=== PATIENT | male | born 1970 | race African-American/Black ===

== ENCOUNTER 2017-07-16 17:09 | Emergency (ER) | payer OTHER ==
[~2017-07-16] VITALS: Ht 167.6 cm; Wt 88.9 kg
[2017-07-16] MEDS ORDERED: FAMOTIDINE 20 MG/2 ML IVP ONE (18:00)
[2017-07-16] MEDS ORDERED: SODIUM CHLORIDE 0.9% 1,000ML IVBOLUS ONE (18:00)
[2017-07-16] MEDS ORDERED: ONDANSETRON 2MG/ML, 2ML IVPush ONE (18:00)
[2017-07-16] MEDS ORDERED: SODIUM CHLORIDE FLUSH 10ML SYR IVF ONE (18:00)
[2017-07-16 18:35] LABS: ASPARTATE AMINO TRANSFERASE 12 U/L (15-37); BLOOD UREA NITROGEN 13 mg/dL (7-18)
[2017-07-16 18:44] LABS: HEMATOCRIT 47.8 % (39.2-51.8); HEMOGLOBIN 15.9 g/dL (13.7-18.0); WHITE BLOOD COUNT 7.8 x10^3/uL (3.4-10)
[2017-07-16] MEDS: MORPHINE SULFATE 4 MG/ML, 1ML IVPush PRN ×2 (19:25→21:35)
[2017-07-16] MEDS ORDERED: ALBU1.25 NEB (19:33)
[2017-07-16] MEDS ORDERED: MORPHINE SULFATE 4 MG/ML, 1ML ONE ×2 (19:39→21:10)
[2017-07-16] MEDS ORDERED: FAMOTIDINE 20 MG/2 ML ONE (19:39)
[2017-07-16] MEDS ORDERED: ONDANSETRON 2MG/ML, 2ML ONE (19:39)
[2017-07-16] MEDS ORDERED: KETOROLAC 30 MG/1 ML ONE (21:10)
[2017-07-16] MEDS ORDERED: METOCLOPRAMIDE 5 MG/ML, 2ML ONE (21:11)
[2017-07-16] MEDS ORDERED: DIPHENHYDRAMINE 50 MG/ML, 1ML ONE (21:11)
[2017-07-16] MEDS ORDERED: KETOROLAC 30 MG/1 ML IVPush ONE (21:30)
[2017-07-16] MEDS ORDERED: METOCLOPRAMIDE 5 MG/ML, 2ML IVPush ONE (21:30)
[2017-07-16] MEDS ORDERED: DIPHENHYDRAMINE 50 MG/ML, 1ML IVPush ONE (21:30)
[2017-07-16] MEDS ORDERED: OMNIPAQUE 350 MG/ML, 100ML BOTTLE ONE (21:33)
[2017-07-16] MEDS ORDERED: DEXAMETHASONE 4 MG/ML, 5ML ONE (22:15)
[2017-07-16] MEDS ORDERED: MAGNESIUM SULFATE PMX 2GM/50ML 50 ML IV ONE (22:30)
[2017-07-16] MEDS ORDERED: DEXAMETHASONE 4 MG/ML, 1ML IVPush ONE (22:30)
[2017-07-17 00:02] VITALS: BP 133/82
== END 2017-07-17 00:04 | disposition home or self-care (01) ==
LOC: ED 21:16
DX: R10.13 Epigastric pain (principal); R17 Unspecified jaundice; J45.909 Unspecified asthma, uncomplicated; G43.909 Migraine, unspecified, not intractable, without status migrainosus
CPT/HCPCS: 36415; 74177; 76700; 80053; 81003; 85025; 96361; 96365; 96366; 96375; 96376; 99285; J1100; J1200; J1885; J2405; J2765; J3475; J7030; Q9967; S0028

== ENCOUNTER → 2017-12-04 | Outpatient (CLI) | payer OTHER ==
[~2017-12-04] MED LIST: ALBU1.25 NEB; GADOBUTROL 10 MMOL/10 ML VIAL ONE
== END | disposition home or self-care (01) ==
LOC: CFH 12:50
PROVIDERS: ATTEND Psychiatry & Neurology Neurology
DX: M48.02 Spinal stenosis, cervical region (principal); M50.221 Other cervical disc displacement at C4-C5 level
CPT/HCPCS: 70553; 72156; A9585

== ENCOUNTER 2018-01-29 23:51 | Emergency (ER) | payer OTHER ==
[~2018-01-29] VITALS: Ht 167.6 cm; Wt 82.1 kg
[~2018-01-29 23:51] MED LIST changes: -GADOBUTROL 10 MMOL/10 ML VIAL ONE
[2018-01-30] MEDS ORDERED: PROMETHAZINE 25MG TABLET PO PRN (00:30)
[2018-01-30] MEDS ORDERED: SUMA25TA3 PO (00:30)
[2018-01-30] MEDS ORDERED: AMLO5TAB4 PO (00:30)
[2018-01-30] MEDS ORDERED: KETOROLAC 30 MG/1 ML IM ONE (00:30)
[2018-01-30] MEDS ORDERED: KETOROLAC 30 MG/1 ML ONE (00:32)
[2018-01-30] MEDS ORDERED: PROMETHAZINE 25MG TABLET ONE (00:32)
[2018-01-30 00:43] LABS: BASOPHILS # (AUTO) 0.02 x10^3/uL (0-0.1); BASOPHILS % (AUTO) 0 % (0-1); EOSINOPHILS # (AUTO) 0.17 x10^3/uL (0-0.4); EOSINOPHILS % (AUTO) 2 % (1-7); LYMPHOCYTES # (AUTO) 1.08 x10^3/uL (1-3.4); LYMPHOCYTES % (AUTO) 15 % (22-44); MD NO; MEAN CORPUSCULAR HEMOGLOBIN 31.1 pg (27.5-34.5); MEAN CORPUSCULAR HGB CONC 33.2 g/dL (33.2-36.2); MEAN CORPUSCULAR VOLUME 93.8 fL (81-97); MEAN PLATELET VOLUME 8.3 fL (7.4-10.4); MONOCYTES # (AUTO) 0.63 x10^3/uL (0.2-0.8); MONOCYTES % (AUTO) 9 % (2-9); NEUTROPHILS # (AUTO) 5.19 x10^3/uL (1.8-6.8); NEUTROPHILS % (AUTO) 73 % (42-75); PLATELET COUNT 288 x10^3/uL (130-400); RED BLOOD COUNT 4.91 x10^6/uL (4.38-5.82)
[2018-01-30 00:52] LABS: ALBUMIN 4.2 g/dL (3.4-5.0); ANION GAP 6 mmol/L (5-15); CALCIUM 9.2 mg/dL (8.5-10.1); CHLORIDE 109 mmol/L (98-107); CREATININE 1.13 mg/dL (0.7-1.3)
[2018-01-30 00:56] LABS: TROPONIN I < 0.015 ng/mL (0.000-0.045)
[2018-01-30] MEDS ORDERED: BUTALBIT/ACETAMIN/CAFF/CODEINE CAPSULE PO PRN (02:30)
[2018-01-30] MEDS ORDERED: BUTALBIT/ACETAMIN/CAFF/CODEINE CAPSULE ONE (02:35)
[2018-01-30 03:12] LABS: TROPONIN I < 0.015 ng/mL (0.000-0.045)
[2018-01-30 03:49] VITALS: BP 115/61
== END 2018-01-30 03:51 | disposition home or self-care (01) ==
LOC: ED 23:59
DX: R07.89 Other chest pain (principal); R51 Headache; I25.2 Old myocardial infarction
CPT/HCPCS: 36415; 71045; 80048; 82040; 84484; 85025; 93005; 96372; 99285; J1885; Q0169

== ENCOUNTER 2018-03-05 16:37 | Emergency (ER) | payer OTHER ==
[~2018-03-05] VITALS: Ht 167.6 cm; Wt 77.9 kg
[~2018-03-05 16:37] MED LIST changes: +AMLO5TAB4 PO; +SUMA25TA3 PO
[2018-03-05] MEDS ORDERED: PROCHLORPERAZINE 5 MG/ML, 2ML IVPush ONE (18:30)
[2018-03-05] MEDS ORDERED: SODIUM CHLORIDE 0.9% 1,000ML IVBOLUS ONE (18:30)
[2018-03-05] MEDS ORDERED: KETOROLAC 30 MG/1 ML IVPush ONE ×2 (18:30→20:00)
[2018-03-05] MEDS ORDERED: ACETAMINOPHEN 325 MG TABLET PO ONE (18:30)
[2018-03-05] MEDS ORDERED: PROCHLORPERAZINE 5 MG/ML, 2ML ONE (18:55)
[2018-03-05] MEDS ORDERED: ACETAMINOPHEN 500 MG TABLET ONE ×2 (18:55→19:11)
[2018-03-05] MEDS ORDERED: KETOROLAC 30 MG/1 ML ONE ×2 (18:55→20:01)
[2018-03-05 18:57] LABS: BASOPHILS # (AUTO) 0.02 x10^3/uL (0-0.1); BASOPHILS % (AUTO) 0 % (0-1); EOSINOPHILS # (AUTO) 0.21 x10^3/uL (0-0.4); EOSINOPHILS % (AUTO) 4 % (1-7); LYMPHOCYTES # (AUTO) 0.87 x10^3/uL (1-3.4); LYMPHOCYTES % (AUTO) 16 % (22-44); MD NO; MEAN CORPUSCULAR HEMOGLOBIN 31.4 pg (27.5-34.5); MEAN CORPUSCULAR HGB CONC 33.4 g/dL (33.2-36.2); MEAN CORPUSCULAR VOLUME 94.1 fL (81-97); MONOCYTES # (AUTO) 0.48 x10^3/uL (0.2-0.8); MONOCYTES % (AUTO) 9 % (2-9); NEUTROPHILS # (AUTO) 3.87 x10^3/uL (1.8-6.8); NEUTROPHILS % (AUTO) 71 % (42-75); PLATELET COUNT 267 x10^3/uL (130-400); RED BLOOD COUNT 4.44 x10^6/uL (4.38-5.82); RED CELL DISTRIBUTION WIDTH 13.2 % (9.4-14.8)
[2018-03-05 18:59] LABS: ALBUMIN 3.7 g/dL (3.4-5.0); ANION GAP 3 mmol/L (5-15); CALCIUM 8.7 mg/dL (8.5-10.1); CHLORIDE 108 mmol/L (98-107); CREATININE 1.02 mg/dL (0.7-1.3)
[2018-03-05 19:03] LABS: TROPONIN I < 0.015 ng/mL (0.000-0.045)
[2018-03-05] MEDS ORDERED: DEXAMETHASONE 4 MG TABLET ONE (20:00)
[2018-03-05] MEDS ORDERED: MAGNESIUM SULFATE/D5W 100 ML IV ONE (20:00)
[2018-03-05] MEDS ORDERED: ONDANSETRON 2MG/ML, 2ML IVPush ONE (20:00)
[2018-03-05] MEDS ORDERED: ONDANSETRON 2MG/ML, 2ML ONE (20:00)
[2018-03-05] MEDS ORDERED: DEXAMETHASONE 4 MG TABLET PO ONE (20:00)
[2018-03-05 22:04] VITALS: BP 135/72
== END 2018-03-05 22:09 | disposition home or self-care (01) ==
LOC: ED 20:47
DX: G43.909 Migraine, unspecified, not intractable, without status migrainosus (principal); R11.0 Nausea; R42 Dizziness and giddiness; I25.2 Old myocardial infarction; J45.909 Unspecified asthma, uncomplicated
CPT/HCPCS: 36415; 70450; 71045; 80048; 82040; 84484; 85025; 93005; 96361; 96365; 96375; 96376; 99285; J0780; J1885; J2405; J7030